=== PATIENT | male | born 1960 | race Two or more races ===

== ENCOUNTER → 2024-01-22 08:21 | Outpatient (REF) | payer BC, SELFPAY | LOC: PAVMRI 08:21 | PROVIDERS: ATTENDING PHYSICIAN Internal Medicine Cardiovascular Disease; FAMILY PHYSICIAN Internal Medicine | DX: R00.2 Palpitations (principal); I49.3 Ventricular premature depolarization; I77.810 Thoracic aortic ectasia; E78.2 Mixed hyperlipidemia; I25.10 Atherosclerotic heart disease of native coronary artery without angina pectoris | CPT/HCPCS: 75561; 75565; A9585 ==